=== PATIENT | female | born 1965 | race Caucasian/White ===

== ENCOUNTER → 2018-04-27 18:51 | Outpatient (CLI) | payer BC ==
[2015-10-22 17:38] VITALS: BMI 47.5
[~2018-04-27 18:51] MED LIST: BIAXIN 500 MG500 MG PO; DILANTIN100 MG PO; DITROPAN X10 MG/BOTT PO; FLAGYL500 MG PO; HYDROCODON-ACE1 EAC6 PO; LOPRESSOR25 MG PO; NEURONTIN 300300 MG PO; OXYBUTYNIN CHLOR5 MG PO; PROBIOTIC1 EAC1 PO; RESTORIL15 MG PO; SALAGEN5 MG PO; ZOFRAN ODT4 MG/UDTAB PO
== END | disposition home or self-care (01) ==
LOC: D.MAMMO 09:15
DX: Z12.31 Encounter for screening mammogram for malignant neoplasm of breast (principal)

== ENCOUNTER → 2020-06-26 09:32 | Outpatient (CLI) | payer MEDICARE, OTHER ==
[2015-10-22 17:38] VITALS: BMI 47.5
--- NOTE | 2020-06-28 09:27 | EC ---
PATIENT:KATHLEEN ALBERT DATE OF SERVICE: 06/26/20 SEX: F MEDICAL RECORD: [id number] DATE OF : 63 LOCATION:[facility] AGE OF PATIENT: 54 ADMISSION DATE: 06/26/20 REFERRING PHYSICIAN: INTERPRETING PHYSICIAN: CECIL PITTS MD ECHOCARDIOGRAM REPORT ECHO CHARGES 4 ECHO COMPLETE Date: 06/26/20 CLINICAL DIAGNOSIS: HEART MURMUR ECHOCARDIOGRAPHIC MEASUREMENTS (adult normal given) AC root (d.<3.7cm) 2.9 cm LV Septum d (<1.2 cm> 1.6 cm Valve Excursion 1.3 cm LV Septum (systole) 1.7 cm Left Atria (s.<4.0cm> 4.5 cm LVPW d(<1.2cm) 1.7 cm RV (d.<2.3cm) 3.3 cm LVPW (sytole) 2.0 cm LV diastole(<5.6CM) 4.9 cm MV E-F(>70mm/sec) cm LV systole 3.3 cm LVOT Diameter 1.5 cm MV exc.(>10mm) 1.6 cm Est.ejection fraction (50-75%) % DOPPLER: LVIT cm/sec A 83.0 cm/sec E 70.0 cm/sec LA cm/sec RVSP 14 mmHg LVOT 90 cm/sec AOP1/2T m/s Asc. Ao 110 cm/sec RVOT 99 cm/sec RA cm/sec PA 111 cm/sec AV Gradient Peak 4.80 mmHg AV Mean 2.38 mmHg AV Area 1.4 cm MV Gradient Peak 2.66 mmHg MV Mean 1.49 mmHg MV Area cm COMMENTS: [employer]: 2 JOSE DU [employer] Teacher: 3 Dr. Schulz TAPE# PACS Pericardial Effusion N DATE OF SERVICE: Adequate 2D, color flow imaging, spectral Doppler, and M-Mode. LVH is present. LV internal dimension is normal. Wall motion is normal. EF is greater than or equal to 55%. Aortic valve is tricuspid. No evidence of stenosis by Doppler interrogation. Left atrium is dilated at 4.5 cm. Mitral valve shows no prolapse. Trivial MR. Right-sided chambers are grossly normal. Trivial TR. ECHOCARDIOGRAM REPORT [id number] KATHLEEN ALBERT TRANSINT:[id number] Voice Confirmation ID: [id number] DOCUMENT ID: [id number] CECIL PITTS MD at 0927 CC: [id number] DICTATION DATE: 06/27/20 1434 LAUNCH OPERATOR: 06/27/20 2158 DEP CLI 06/26/20 [id number] [place] [id number]
== END | disposition home or self-care (01) ==
LOC: D.HCCECHO 09:32
PROVIDERS: ATTEND Internal Medicine Cardiovascular Disease
DX: I20.9 Angina pectoris, unspecified (principal); R01.1 Cardiac murmur, unspecified